=== PATIENT | female | born 1985 | race Caucasian/White ===

== ENCOUNTER 2022-03-29 02:46 | Emergency (ER) | payer OTHER ==
[2022-03-29] MEDS ORDERED: Dexamethasone 4 MG TAB ONE (03:07)
== END 2022-03-29 03:11 | disposition home or self-care (01) ==
LOC: NAV ERS 02:46
DX: L25.9 Unspecified contact dermatitis, unspecified cause (principal)
CPT/HCPCS: 99282; J8540